=== PATIENT | male | born 1945 | race Caucasian/White ===

== ENCOUNTER 2020-09-23 09:50 | Emergency (ER) | payer BC, OTHER ==
--- NOTE | 2020-09-23 11:45 | RAD REPORT ---
EXAM DESCRIPTION: US - Lower Extremity Artery Uni Ltd - 09/23/2020 11:29 am CLINICAL HISTORY: Leg pain/peripheral vascular disease COMPARISON: None FINDINGS: The left common femoral and proximal left superficial femoral arterial waveforms are triphasic. Monophasic waveform distal left superficial femoral artery. Moderate stenosis. Left popliteal, left posterior tibial and left dorsalis pedis arterial waveforms are monophasic . IMPRESSION: Moderate stenosis mid to distal left superficial femoral artery
--- NOTE | 2020-09-23 12:13 | RAD REPORT ---
EXAM DESCRIPTION: USExtremity Venous Uni Ltd09/23/2020 11:29 am CLINICAL HISTORY: left leg pain COMPARISON: None. FINDINGS: Left common femoral, superficial femoral, popliteal and posterior tibial veins are compre ssible and demonstrate augmentation. Doppler demonstrates good flow. IMPRESSION: No evidence of deep venous thrombosis involving the left lower extremity.
--- NOTE | 2020-09-23 12:22 | EDPHYS ---
Physician Documentation [facility] Name: Girma Alvares Age: 75 yrs Sex: Male : 1945 Arrival Date: 09/23/2020 Time: 09:59 Bed 8 Private MD: ED Physician Russell Wu HPI: 09/23 11:38 This 75 yrs old Male presents to ER via Ambulatory with complaints of High rn Blood Pressure, calf pain. 11:38 The patient has elevated blood pressure and discovered this at a physician's office. rn Onset: The symptoms/episode began/occurred just prior to arrival. Modifying factors:. Associated signs and symptoms: Pertinent negatives: chest pain, dizziness, headache, lightheadedness, nausea, visual changes, vomiting, weakness. Severity of symptoms: At its worst the blood pressure was moderate, in the emergency department the blood pressure is unchanged. The patient has experienced similar episodes in the past. Reports sent [facility], was there today for about 1 month of left calf pain, no injury, reports worse with ambulation, doesn't hurt everytime but the further he walks the more it hurts. No fever, no rash. Told bloodflow seems good. No swelling. No hx of dvt/pe. . Historical: - Allergies: 10:22 No Known Allergies; tw2 - Home Meds: 10:22 albuterol sulfate 90 mcg/actuation Inhl HFAA 1 puff every 4-6 hours [Active]; tw2 amlodipine 10 mg tab 1 tab once daily (Last Dose: 09/20/2020 08:00) [Active]; lisinopril 40 mg Oral tab 1 tab once daily [Active]; - PMHx: 10:22 BPH; hearing loss; COPD; Hyperlipidemia; Hypertension; tw2 - Immunization history:: Adult Immunizations. - Social history:: Smoking status: . - Family history:: not pertinent. - Hospitalizations: : No recent hospitalization is reported. ROS: 11:38 Constitutional: Negative for fever, chills, and weight loss, Eyes: Negative for injury, rn pain, redness, and discharge, Neck: Negative for injury, pain, and swelling, Cardiovascular: Negative for chest pain, palpitations, and edema, Respiratory: Negative for shortness of breath, cough, wheezing, and pleuritic chest pain, Abdomen/GI: Negative for abdominal pain, nausea, vomiting, diarrhea, and constipation, Back: Negative for injury and pain, MS/Extremity: + left lower leg pain Skin: Negative for injury, rash, and discoloration, Neuro: Negative for headache, weakness, numbness, tingling, and seizure. Exam: 11:38 Constitutional: This is a well developed, well nourished patient who is awake, alert, rn and in no acute distress. Head/Face: Normocephalic, atraumatic. Eyes: Periorbital areas with no swelling, redness, or edema. ENT: MMM Cardiovascular: Regular rate and rhythm. No pulse deficits. Respiratory: No increased work of breathing, no retractions or nasal flaring. Skin: Warm, dry, no rashes, no cyanosis MS/ Extremity: Pulses equal, no cyanosis. Neurovascular intact. Full, normal range of motion. Equal circumference. Neuro: Awake and alert, GCS 15, oriented to person, place, time, and situation. Cranial nerves II-XII grossly intact. Motor strength 5/5 in all extremities. Sensory grossly intact. Cerebellar exam normal. Vital Signs: 10:15 BP 189 / 120; Pulse 91; Resp 17; Temp 97.9; Pulse Ox 99% on R/A; Weight 70.76 kg (R); tw2 Height 6 ft. 1 in. (185.42 cm); 10:38 BP 200 / 97; Pulse 77; Resp 16; Pulse Ox 100% ; bp 12:30 BP 187 / 95; Pulse 75; Resp 16; Temp 98; Pulse Ox 100% ; bp 10:15 Body Mass Index 20.58 (70.76 kg, 185.42 cm) tw2 MDM: 10:24 Patient medically screened. rn 12:19 Differential diagnosis: asymptomatic HTN, claudication, DVT. Data reviewed: vital rn signs, nurses notes, radiologic studies, doppler, and as a result, I will discharge patient. Counseling: I had a detailed discussion with the patient and/or guardian regarding: the historical points, exam findings, and any diagnostic results supporting the discharge/admit diagnosis, radiology results, the need for outpatient follow up, to return to the emergency department if symptoms worsen or persist or if there are any questions or concerns that arise at home. Response to treatment: the patient's symptoms have mildly improved after treatment, and as a result, I will discharge patient. Special discussion: I discussed with the patient/guardian in detail that at this point there is no indication for admission to the hospital. It is understood, however, that if the symptoms persist or worsen the patient needs to return immediately for re-evaluation. Based on the history and exam findings, there is no indication for further emergent testing or inpatient evaluation. vascular. ED course: Neg for DVT, + moderate stenosis but still palpable pulse left leg, pain likely from mild claudication given findings on u/s and absence of trauma.. 09/23 10:29 Order name: Lower Extremity Artery ONE Change US; Complete Time: 12:14 rn 09/23 10:29 Order name: Extremity Venous ONE Change US; Complete Time: 12:14 rn Administered Medications: No medications were administered Disposition: 09/23/20 12:21 Discharged to Home. Impression: Atherosclerosis of [place] arteries of extremities with intermittent claudication, left leg. - Condition is Stable. - Discharge Instructions: Intermittent Claudication, Peripheral Vascular Disease. - Medication Reconciliation Form, Thank You Letter, Antibiotic Education, Prescription Opioid Use form. - Follow up: Private Physician; When: As needed; Reason: Recheck today's complaints, Re-evaluation by your physician. - Problem is new. - Symptoms have improved. Signatures: Dispatcher [employer] EDMS Russell Wu MD MD rn Wise, Tara, RN RN 2 Troy Thompson RN RN bp Corrections: (The following items were deleted from the chart) 12:36 12:21 09/23/2020 12:21 Discharged to Home. Impression: Atherosclerosis of [place] bp arteries of extremities with intermittent claudication, left leg. Condition is Stable. Forms are Medication Reconciliation Form, Thank You Letter, Antibiotic Education, Prescription Opioid Use. Follow up: Private Physician; When: As needed; Reason: Recheck today's complaints, Re-evaluation by your physician. Problem is new. Symptoms have improved. rn
--- NOTE | 2020-09-23 12:22 | ER ---
Nurse's Notes [facility] Name: Girma Alvares Age: 75 yrs Sex: Male : 1945 Arrival Date: 09/23/2020 Time: 09:59 Bed 8 Private MD: Diagnosis: Atherosclerosis of [place] arteries of extremities with intermittent claudication, left leg Presentation: 09/23 10:15 Chief complaint: Patient states: [facility]. It tw2 slowly been coming on the last month or so. In the last week i go about 50 feet and it starts killing me. My pressure was too high and the [facility] They got 200/111 and 194/109. I told them it was because I was in pain. Coronavirus screen: At this time, the client does not indicate any symptoms associated with coronavirus-19. Ebola Screen: Patient denies travel to an Ebola-affected area in the 21 days before illness onset. Initial Sepsis Screen: Does the patient meet any 2 criteria? HR > 90 bpm. No. Patient's initial sepsis screen is negative. Does the patient have a suspected source of infection? No. Patient's initial sepsis screen is negative. Risk Assessment: Do you want to hurt yourself or someone else? Patient reports no desire to harm self or others. Onset of symptoms was September 23, 2020. 10:15 Method Of Arrival: Ambulatory tw2 10:15 Acuity: SERINA 3 tw2 10:18 Chief complaint: Patient states: I get up and it dont hurt me, but i walk about 50 feet tw2 to check the mail and it starts hurting in my LEFT calf. Triage Assessment: 10:19 General: Appears in no apparent distress. slender, well groomed, Behavior is calm, tw2 cooperative, appropriate for age. Pain: Complains of pain in left calf. Historical: - Allergies: 10:22 No Known Allergies; tw2 - Home Meds: 10:22 albuterol sulfate 90 mcg/actuation Inhl HFAA 1 puff every 4-6 hours [Active]; tw2 amlodipine 10 mg tab 1 tab once daily (Last Dose: 09/20/2020 08:00) [Active]; lisinopril 40 mg Oral tab 1 tab once daily [Active]; - PMHx: 10:22 BPH; hearing loss; COPD; Hyperlipidemia; Hypertension; tw2 - Immunization history:: Adult Immunizations. - Social history:: Smoking status: . - Family history:: not pertinent. - Hospitalizations: : No recent hospitalization is reported. Screenin:25 Abuse screen: Denies threats or abuse. Denies injuries from another. Nutritional bp screening: No deficits noted. Tuberculosis screening: No symptoms or risk factors identified. Fall Risk None identified. Assessment: 10:25 General: SEE TRIAGE NOTE. bp 12:33 Reassessment: PT LEFT WITHOUT D/C PAPERS. LAST SEEN IN STABLE CONDITION. bp Vital Signs: 10:15 BP 189 / 120; Pulse 91; Resp 17; Temp 97.9; Pulse Ox 99% on R/A; Weight 70.76 kg (R); tw2 Height 6 ft. 1 in. (185.42 cm); 10:38 BP 200 / 97; Pulse 77; Resp 16; Pulse Ox 100% ; bp 12:30 BP 187 / 95; Pulse 75; Resp 16; Temp 98; Pulse Ox 100% ; bp 10:15 Body Mass Index 20.58 (70.76 kg, 185.42 cm) tw2 ED Course: 09:59 Patient arrived in ED. am2 10:18 Triage completed. tw2 10:18 Arm band placed on. tw2 10:24 Russell Wu MD is Attending Physician. rn 10:25 Troy Thompson, NIDHI is Primary Nurse. bp 10:25 Patient has correct armband on for positive identification. Bed in low position. Call bp light in reach. Side rails up X2. 10:26 Patient has correct armband on for positive identification. Bed in low position. Call mh5 light in reach. Side rails up X 1. Warm blanket given. clinical research monitor on. Pulse ox on. NIBP on. 11:29 Lower Extremity Artery Uni Ltd US In Process Unspecified. EDMS 11:29 Extremity Venous Uni Ltd US In Process Unspecified. EDMS 12:35 No provider procedures requiring assistance completed. Patient did not have IV access bp during this emergency room visit. Administered Medications: No medications were administered Outcome: 12:21 Discharge ordered by . rn 12:35 Discharged to home ambulatory. bp 12:35 Condition: stable 12:35 Discharge instructions given to PT LEFT WITHOUT WAITING FOR D/C PAPERS 12:36 Patient left the ED. bp Signatures: Dispatcher [employer] EDRussell Miles MD MD rn Wise, Tara, RN RN 2 Bianca Dennis [facility] Michelle Sue Troy Hernandez RN RN bp
[2020-09-23 12:47] VITALS: O2SAT 100
[2020-09-23 12:49] VITALS: BP 187/95; TEMP 98
== END 2020-09-23 12:36 | disposition home or self-care (01) ==
LOC: ER 09:50
DX: I70.212 Atherosclerosis of native arteries of extremities with intermittent claudication, left leg (principal); I10 Essential (primary) hypertension; E78.5 Hyperlipidemia, unspecified; J44.9 Chronic obstructive pulmonary disease, unspecified
CPT/HCPCS: 93926; 93971; 99284